=== PATIENT | female | born 1965 | race Caucasian/White ===

== ENCOUNTER 2016-05-30 14:22 | Observation (INO) | payer OTHER ==
[2016-05-30] VITALS (7 sets, daily range): BP systolic 140–215; BP diastolic 86–116; PULSE 91–119; RESP 14–31; O2SAT 96–99
[~2016-05-30] VITALS: Ht 160 cm; Wt 106.0 kg
[2016-05-30 14:52] LABS: BASOPHILS % (AUTO) 0.4 % (0-3); EOSINOPHILS % (AUTO) 1.5 % (0-5); MONOCYTES % (AUTO) 6.1 % (4-12); Mean Corpuscular Volume 79.3 fL (81-100); NEUTROPHILS % (AUTO) 69.5 % (40-74); Platelet Count 329 bil/L (150-400)
--- NOTE | 2016-05-30 15:04 | DRSVH ---
PROCEDURE: X-RAY CHEST ONE VIEW, PORTABLE ([id number]) INDICATIONS: chest pain TECHNIQUE: One view of the chest was acquired. COMPARISON: 01/24/2016 FINDINGS: Surgical changes and devices: None. Lungs and pleura: No pleural effusions or pneumothorax. Lungs are clear. Mediastinum: Mediastinal contours appear normal. Heart size is normal. Bones and chest wall: No suspicious bony lesions. Overlying soft tissues appear unremarkable. IMPRESSION: No acute cardiopulmonary abnormality Dictated by: Rolf Queen M.D. on 05/30/2016 at 15:02 Approved by: Rolf Queen M.D. on 05/30/2016 at 15:03
[2016-05-30] MEDS ORDERED: NAPR220C16 PO (15:13)
[2016-05-30] MEDS ORDERED: ALBU8.5H2 INHALATION (15:13)
[2016-05-30] MEDS ORDERED: NITR0.4T6 SL (15:13)
[2016-05-30] MEDS ORDERED: CARV6.25 PO (15:13)
[2016-05-30] MEDS ORDERED: ASPI-973 PO (15:13)
[2016-05-30] MEDS ORDERED: CARV12.5 PO ×2 (15:13)
[2016-05-30 15:15] LABS: TROPONIN T < 0.010 ug/L (0.0-0.011)
--- NOTE | 2016-05-30 15:16 | ED.REPORT ---
HPI-Chest Pain 40 and Over Date of Service May 30, 2016 ED Provider: Neymar Contreras MD Pt is a 51 year old female with a hx of arrhythmia, HTN, asthma and angina presenting to the ED via EMS complaining of intermittent chest pressure onset 3 days ago. Today, the pain has been intermittent throughout the day lasting for about 1 or 2 minutes. Associated symptoms include dizziness, lightheadedness, blurry vision, palpitations, rapid heart rate and decreased heart rate which she measured with a heart monitor. She denies similar symptoms in the past. She reports that she had a stress test 15 years ago and states that she is known to have angina. UC EKG from today reports sinus tachycardia. Pt states that she took nitro spray at home 3 times today with some relief. Pt usually takes 18mg of Coreg daily but has not taken them for the last 3 days due to her symptoms, and takes 1 ASA per day, but today took 4. Nursing Notes Stated Complaint: CHEST PAIN Chief Complaint: Chest Pain Nursing Notes Reviewed: Yes Allergies: Coded Allergies: morphine (Verified Allergy, Severe, Agitation, 05/30/16) erythromycin base (Verified Allergy, Intermediate, Nausea,Vomiting, ) Scheduled Aspirin (Aspirin) 81 Mg Tablet 81 MG PO DAILY Carvedilol (Coreg) 12.5 Mg Tablet 25 MG PO QAM Carvedilol (Coreg) 12.5 Mg Tablet 12.5 MG PO HS Carvedilol (Coreg) 6.25 Mg Tablet 6.25 MG PO HS Scheduled PRN Albuterol Sulfate (Ventolin HFA Inhaler) 200 Puff/18 Gm Inhaler 2 PUFFS INH q4- 6 hours PRN PRN For Shortness of Breath Naproxen Sodium (Naproxen Sodium) 220 Mg Capsule 220 MG PO BID PRN PRN For Pain Nitroglycerin [place] (Nitroglycerin [place]) 4.9 Gm [place] 1 SPRAY SL Q5MIN PRN PRN For Chest Pain General Time Seen by MD: 15:08 Chief Complaint Chest pressure Hx Obtained From: Patient Arrived By: Ambulance Sudden in Onset?: No Onset Occurred: 3 days ago Symptom Duration: Intermittent Quality: Painful, Pressure Radiation: : Does not radiate Severity: Current: Moderate Severity: Maximum: Moderate Recent Healthcare: No recent hospitalization, Recent doctor visit Similar Sx Previous: No Past Medical History Past Medical History Reported: arrhythmia, HTN, asthma, angina Past Surgical History denies Smoking History Current Every Day Smoker (Trying to quit) Ambulatory Status Independent Review of Systems Respiratory: Denies: Shortness of breath Cardiovascular: Reports: Chest pain, Palpitations GI: Denies: Vomiting Neurologic: Reports: Dizziness, Lightheaded Complete sys rev & neg: except as marked. Eyes: Reports: Blurred bilateral Physical Exam Initial Vital Signs Vital Signs (First) Date Time Temp Pulse Resp B/P Pulse Ox O2 Delivery O2 Flow Rate FiO2 05/30/16 14:30 36.9 119 16 215/116 99 Room Air Initial VS: Reviewed ENT: Mucous membranes moist, Conjunctiva normal, No scleral icterus Extremities: Vascular intact, Neuro intact, No swelling, No tenderness Skin: Warm, Dry, No cyanosis Neurologic: Alert, Oriented, Nonfocal Psychiatric: Mood/affect normal, Behavior normal, Normal thought content General/Constitutional: Awake, Alert, No acute distress, Well appearing Respiratory / Chest: Breath sounds = bilat, No respiratory distress Wheezing / Retractions: Positive: Wheeze insp/exp diffuse (Scattered) Cardiovascular: Regular rhythm, Heart sounds NL, No gallop, No murmurs, No rubs Heart Rate / Rhythm: Positive: Tachycardia BP: 213/113 Abdomen: Soft, Non-tender, BS normoactive Neck: Thyroid NL Interpretation & Diagnostics Lab Results Interpretation Result Diagram: 05/30/16 1440 05/30/16 1440 Test 05/30/16 14:40 White Blood Count 9.9th/mm3 (3.8-10.1) Red Blood Count 5.85mil/mm3 (3.90-5.20) Hemoglobin 14.6g/dL (12.0-15.6) Hematocrit 46.4% (35.0-46.0) Mean Corpuscular Volume 79.3fL (81-100) Mean Corpuscular Hemoglobin 25.0pg (27.0-35.0) Mean Corpuscular Hemoglobin Concent 31.5% (32.0-37.0) Red Cell Distribution Width 16.2% (12.3-15.4) Platelet Count 329bil/L (150-400) Neutrophils (%) (Auto) 69.5% (40-74) Lymphocytes (%) (Auto) 22.3% (14-46) Monocytes (%) (Auto) 6.1% (4-12) Eosinophils (%) (Auto) 1.5% (0-5) Basophils (%) (Auto) 0.4% (0-3) D-Dimer < 0.5mg/L (<0.50) Sodium Level 139mEq/L (134-144) Potassium Level 3.4mEq/L (3.5-5.2) Chloride Level 98mEq/L (97-108) Carbon Dioxide Level 24mmol/L (18-29) Blood Urea Nitrogen 5mg/dL (6-24) Creatinine 0.58mg/dL (0.57-1.00) Estimat Glomerular Filtration Rate 157mL/min (>59) Glucose Level 102mg/dL (60-99) Calcium Level 9.3mg/dL (8.5-10.1) Magnesium Level 1.5mg/dL (1.6-2.6) Total Bilirubin 0.4mg/dL (0.0-1.2) Aspartate Amino Transf (AST/SGOT) 20U/L (0-50) Alanine Aminotransferase (ALT/SGPT) 22U/L (0-32) Alkaline Phosphatase 99U/L (25-150) Total Creatine Kinase 120U/L (21-215) Creatine Kinase MB 4.0ng/mL (0.0-5.3) Creatine Kinase MB % % (0.0-5.0) Total Protein 7.7g/dL (6.4-8.4) Albumin 4.4g/dL (3.4-5.0) Thyroid Stimulating Hormone (TSH) 1.910uIU/mL (0.450-4.500) ECG Interpretation ECG Interpretation: Sinus tachycardia. Probable left atrial enlargement. Prolonged QT interval. Time: 15:08 Interpreted by: ED physician Abnormal Rate: 100 (106) X-Ray Chest Interpretation Chest Xray Interpretation: IMPRESSION: No acute cardiopulmonary abnormality Dictated by: Rolf Queen M.D. on 05/30/2016 at 15:02 View: Portable, 1 view Interpretation / Wet Read by: Interpret - Radiologist Re-Eval/Medical Decision Med Decision/Clinical Course 51-year-old female with a prolonged episode of intermittent chest pain and palpitations, tachycardia and by her report according to her home. Monitor episode of bradycardia with a heart rate down into the 50s. Her systematic theology professor as previously been attempting to get a stress test done on this lady. Troponin is negative and initial EKG shows sinus tachycardia, she was noted to be markedly hypertensive but had not been taking her beta donovan on arrival. Was given labetalol and then carvedilol with good results. We will admit her to [facility] status for a formal rule out and hopefully a stress test can be completed prior to discharge. Her palpitations and tachycardia additional time on international tax manager is also felt to be useful. Time of Eval: 16:58 Patient Status: Condition improved Re-Evaluation/Progress Note: Pt chest pain is resolved. Discussed plan for admission and stress test. Pt understands and agrees. Time of Eval: 19:01 Patient Status: Condition improved Re-Evaluation/Progress Note: Discussed admission. Pt understands and agrees. Consultation #1: Referral / Consult Name: Dedra Espinoza MD Consulted With: Cardiology Call Returned at: 16:28 Child Care Centre Manager: Agrees with plan Note: Discussed with Dr. Espinoza. Recommends a stress test. Consultation #2: Referral / Consult Name: Renae Hunter MD Consulted With: Hospitalist Call Returned at: 18:56 Child Care Centre Manager: Will see patient, Agrees with plan, Accepts admit Counseled Regarding: Diagnosis, Lab results, Need for follow-up, When/why to return to ED Discharge & Departure Primary Impression: Chest pain Chest pain type: unspecified Qualified Code: R07.9 - Chest pain, unspecified Additional Impression: Tachycardia Disposition: ADMITTED TO HOSPITAL Discharge Condition All VS Reviewed: Yes Condition: Improved Referrals: Floresita Martin DO (PCP) Dedra Espinoza MD Attestation Portions of this note were transcribed by Annmarie Lang. I, Dr. Contreras personally performed the history, physical exam and medical decision-making; I reviewed and confirmed the accuracy of the information in the transcribed note. Signed by : Gee Chin, 05/30/2016 and 1859. copies to: Floresita Martin DO; Dedra Espinoza MD, Donald L MD May 30, 2016 15:16 ANNMARIE LANG May 30, 2016 15:37
[2016-05-30 15:26] LABS: Magnesium 1.5 mg/dL (1.6-2.6)
[2016-05-30] MEDS ORDERED: Labetalol 5 mg/mL 4 mL Inj IVPUSH ONE (15:30)
[2016-05-30] MEDS ORDERED: Ondansetron 2 mg/mL 2 mL Inj IVPUSH PRN ×2 (19:00→19:10)
[2016-05-30] MEDS ORDERED: Alum-Mag Hydrox-Simeth 30 mL Suspension PO PRN (19:00)
--- NOTE | 2016-05-30 19:09 | PCM.HPMED ---
Subjective Date of Service May 30, 2016 Primary Provider: Admitting Physician: Primary Care Physician: Floresita Martin DO Attending Physician: Chief Complaint: Chest pain HISTORY was OBTAINED FROM PATIENT / MEDITECH NOTES History of present illness 51-year-old female with 3 days of intermittent chest pressure lasting minutes. Associated feeling winded and w/ lightheadedness/ blurry vision/palpitations/low and high heart rate per her home heart monitor 50 -130s, worse w/ home albuterol. Last stress exam was 15 years ago. She was sent by urgent care today she took 4 aspirins today. nitroglycerin at home helped but not enough. chest pain worst after exertion/moving on sunday.no cough /sick contact. no renal/adrenal studies previously for chronic HTN. no PCP visit in 2 years. sees preparer/Jonathanuer regularly. In the ER 215/116, pulse 119, 99% on room air, 12.5 chloride, 20 labetalol. sinus tachy on UC's EKG. intermittent chest pains are lasting 1-2 seconds. nicotine urge better after patch. Review of Systems - none of the following - F/C/sick contact / wt change/ WHEELER / lightheaded / dizziness / sob / cough / acid reflux / n/v/diarrhea / bleeding/ bruising / leg swelling / change in voiding / yeast infections / rash ambulates FAMILY HX daughter-HTN at 19 years SOCIAL HX 2-3 per week, smoker MEDICATIONS Albuterol HFA (Proair HFA) 8.5 Gm Hfa.aer.ad 2 PUFFS INHALATION Q4H Aspirin (Aspirin) 81 Mg Tablet 81 MG PO DAILY Carvedilol (Coreg) 12.5 Mg Tablet 25 MG PO DAILYWM Carvedilol (Coreg) 12.5 Mg Tablet 12.5 MG PO QPM Carvedilol (Coreg) 6.25 Mg Tablet 6.25 MG PO QPM Scheduled PRN Naproxen Sodium (Naproxen Sodium) 220 Mg Capsule 220 MG PO BID PRN PRN For Pain Miscellaneous Medications Nitroglycerin SL (Nitroglycerin SL) 0.4 Mg Tab.subl 0.4 MG SL Past Medical/Surgical HX Hypertension Dysrhythmia Asthma Chronic angina DANIEL CPAP recommended 2014 PNA 01/2016 treated w/ levaquin Allergies Coded Allergies: morphine (Verified Allergy, Severe, Agitation, 05/30/16) erythromycin base (Verified Allergy, Intermediate, Nausea,Vomiting, ) PMH Social History Hx Alcohol Use: Yes (2-3 drinks a couple times a week) Hx Substance Use: No Exam Vital Signs Vital Sign - Last Date Time Temp Pulse Resp B/P Pulse Ox O2 Delivery O2 Flow Rate FiO2 05/30/16 17:37 95 31 140/89 97 Room Air 05/30/16 14:30 36.9 Lab and Diagnostics Labs Exam on admission NAD A and O x 3 mood affect WNL NC/AT no icterus no injected eyes EOMI PERRL /no pharyngeal lesions/ no oral lesions / hearing intact Supple neck CTAB equal chest rise / no accessory muscle use / speaks in full sentences / no rrw RRR S1 S2 / no mrg / 2+ radial pulses Soft nt nd + BS no hepatosplenomegaly No edema no cyanosis no ecchymosis of lower extremities No rash / no jaundice THIBODEAUX symmetrical facies EKG sinus tachy 135, Qtc 459, no ST changes BNP 169 No left shift TSH 1.9 Troponin 0.01 x 2 D-dimer 0.5 LFT normal Imaging PROCEDURE: X-RAY CHEST ONE VIEW, PORTABLE ([id number]) INDICATIONS: chest pain TECHNIQUE: One view of the chest was acquired. COMPARISON: 01/24/2016 FINDINGS: Surgical changes and devices: None. Lungs and pleura: No pleural effusions or pneumothorax. Lungs are clear. Mediastinum: Mediastinal contours appear normal. Heart size is normal. Bones and chest wall: No suspicious bony lesions. Overlying soft tissues appear unremarkable. IMPRESSION: No acute cardiopulmonary abnormality 06/09/14 ECHO Interpretation Summary 1. Normal left ventricular size with mild LVH and normal systolic function with an estimated EF of 60-65% 2. Normal right ventricular size and systolic function 3. No evidence for valvular pathology. Result Diagram: 05/30/16 1440 05/30/16 1440 Assessment & Plan Active issues and reason for admission chest pain worse on exertion, chronic angina, chronic sinus tachycardia. --nuc med stress study chemical per cardiology (per patient) pending, echo pending, serial trop (neg x 2) pending, Dr. Espinoza aware. --pending lipid panel --nitro prn, ASA, hold morphine causes agitation --TSH normal, switch albuterol to levalbuterol Mild hypokalemic // low magnesium, likely due to albuterol --advance diet --replete mag Microcytosis --monitor Chronic issues known prior to admission, present on admission ASthma DANIEL --prn CPAP/BIPAP --trial levalbuterol prn smoker --nicotine patch Diet cardiac then npo DVT prophylaxis heparin scd ambulate Code full Disposition OBS status Assessment and plan were discussed with patient family. Renae Hunter MD May 30, 2016 19:09
[2016-05-30 19:54] LABS: Creatine Kinase 120 U/L (21-215)
[2016-05-30] MEDS ORDERED: ALBU18HF INH (20:04)
[2016-05-30] MEDS ORDERED: NITR4.9S5 SL (20:04)
[2016-05-30 20:21] LABS: INR 0.99 ratio
[2016-05-30 20:43] LABS: TROPONIN T < 0.010 ug/L (0.0-0.011)
[2016-05-30] MEDS ORDERED: Albuterol 1.25 mg/3 mL Inhalation Solution NEB PRN (21:05)
[2016-05-30] MEDS ORDERED: Magnesium Sulf 2 Gm/50mL Water 2 GM in IV Premix 1 EACH IV ONE (22:15)
[2016-05-31] MEDS ORDERED: Potassium Chloride Oral 20 mEq SR Tab(K 3 - 3.7 & Creat < 2) PO ONE (00:10)
[2016-05-31] MEDS ORDERED: 0.9% Sodium Chloride 250 ML IV ONE (00:20)
[2016-05-31] MEDS: Sodium Chloride LOK Flush 10 mL Syringe IVFLUSH SCH ×3 (00:30→16:30)
[2016-05-31 00:49] LABS: Creatine Kinase 83 U/L (21-215)
[2016-05-31] MEDS: Heparin 5,000 Unit/mL Inj SUBQ SCH ×3 (01:00→16:30)
[2016-05-31 01:12] VITALS: BP 172/103; PULSE 81; RESP 18; O2SAT 98
--- NOTE | 2016-05-31 01:29 | NUR ---
Admission Pt admitted from ED. Pt alert and oriented x3. Tele on, full admission completed. Pt complains of 2/10 chest pain which is resolving.
[2016-05-31] MEDS: hydrALAZINE 20 mg/mL Inj IV PRN ×2 (01:58→08:15)
[2016-05-31 02:50] LABS: BASOPHILS % (AUTO) 0.2 % (0-3); EOSINOPHILS % (AUTO) 2.9 % (0-5); MONOCYTES % (AUTO) 7.5 % (4-12); Mean Corpuscular Hemoglobin 25.1 pg (27.0-35.0); Mean Corpuscular Volume 79.8 fL (81-100); NEUTROPHILS % (AUTO) 64.9 % (40-74); Platelet Count 305 bil/L (150-400)
[2016-05-31 03:25] LABS: Magnesium 2.4 mg/dL (1.6-2.6)
[2016-05-31 04:50] VITALS: BP 147/90; PULSE 96; RESP 20; O2SAT 96
--- NOTE | 2016-05-31 05:28 | NUR ---
Hypertension/No chest pain (Assumed care at 0110) BP 172/103 around 0100, Dr. Hallman made aware,carvedilol hold due to scheduled stress test today 06/10/2016, Hydralazine ordered and administered, recent recheck BP 149/90. Pt denies any chest pain or pressure or SOB, but non productive cough intermittently. Pt aware stress test today, kept NPO after MN except sips of water for taking oral med at 0130, no caffeine since 9am on 05/30/2016.
[2016-05-31 06:29] LABS: APPEARANCE,URINE HAZY (CLEAR,HAZY); COLOR,URINE YELLOW (YELLOW); OCCULT BLOOD,URINE TRACE (NEGATIVE); UROBILINOGEN,URINE NORMAL (NORMAL)
[2016-05-31 07:50] VITALS: BP 160/96; PULSE 88; RESP 16; O2SAT 96
[2016-05-31 07:58] VITALS: PULSE 79; RESP 16; O2SAT 97
--- NOTE | 2016-05-31 08:24 | NUR ---
Off Floor Pt off floor for STRESS test, panel monitor called.
--- NOTE | 2016-05-31 09:15 | NUR ---
Social Work: Screening Data: Pt is a 51 y/o female admitted for chest pain resolved, tachycardia. Pt's PCP is Dr Martin, pt's insurance is [employer]. EMR reviewed. No d/c planning needs anticipated at this time. DRY STARCH SUPERVISOR will continue to follow if needs arise. Assessment: Pt who is independent at baseline. Plan: Pt will d/c home via POV when medically stable. No d/c planning needs anticipated at this time. DRY STARCH SUPERVISOR will continue to follow if needs arise. JUDY Salazar
--- NOTE | 2016-05-31 10:40 | NUR ---
On floor Pt returned from STRESS test.
[2016-05-31 10:44] VITALS: PULSE 88
--- NOTE | 2016-05-31 12:11 | DRSVH ---
PROCEDURE: 1 DAY TREADMILL STRESS TEST Rest and exercise myocardial perfusion SPECT with gated imaging and ejection fraction RADIOPHARMACEUTICAL: 15.3 mCi Tc-99m tetrafosmin IV at rest and 44.6 mCi Tc-99m tetrafosmin IV at pea k exercise. Zko-ynv-zswfrzic was performed. INDICATIONS: 51-year-old woman with chest pain. The patient has hypertension, hyperlipidemia and smo jamil as risk factors for coronary disease. Evaluate myocardial ischemia. TECHNIQUE: Radiopharmaceutical was injected at peak stress test, and also at rest. SPECT images wer e obtained. SPECT myocardial perfusion images were displayed in short axis, horizontal long axis, an d vertical long axis views. Gated images were reviewed using [employer] software. COMPARISON: None. CARDIAC STRESS: A standard Allan treadmill exercise tolerance test was performed by the patient under the supervision of an attending staff. The patient exercised for 2 minutes and 36 seconds; functional aerobic impai rment (MARCIA) is +58 %. Hemodynamic data: Hypertensive at baseline. There is normal blood pressure and heart rate response t o exercise stress. Patient achieved 85% of maximum predicted heart rate at peak exercise. Symptoms: Patient has mid sternal chest pressure during peak exercise, which increased immediately p ost exercise but subsided 3 minutes into recovery. EKG: No diagnostic EKG changes of ischemia; no ectopy. FINDINGS: Raw data: There is good myocardial labeling by radiotracer. No significant motion artifacts. Left ventricle function: Gated images demonstrate normal left ventricle wall thickening. No segment al wall motion abnormality. No transient ischemic dilation. The left ventricle resting end-diastoli c volume is normal. Left ventricle stress ejection fraction is greater than 70%; normal values are a brigida 45%. Myocardial perfusion: There is a small, mild, fixed defect in the inferior apex, which is resolved o n prone imaging, consistent with diaphragmatic attenuation artifact. There is otherwise normal distri bution of activity in the left and right ventricular myocardium. No reversible perfusion defect to s uggest myocardial ischemia. IMPRESSION: 1. Normal myocardial perfusion images. 2. Normal left ventricular volume and systolic function. 3. Severely limited exercise capacity. Patient experienced mid sternal chest pressure during peak exe rcise. No diagnostic EKG changes for ischemia. PQRS ATTESTATIONS: Measure 322 - Is this imaging test primarily performed on a low-risk surgery patient for preoperative evaluation within 30 days preceding their low-risk non-cardiac surgery? Low-risk surgery is defined as cardiac or myocardial infarction less than 1%, including (but not limited to) endoscopic pr ocedures, superficial procedures, cataract surgery, and excisional breast surgery: Answer: No Measure 323 - Is this imaging test performed primarily for the monitoring of an asymptomatic patient who had percutaneous coronary intervention on the visit date or within 2 years of the visit date? An swer: No Measure 324 - Is this imaging test performed primarily for the initial detection and risk assessment on an asymptomatic, low coronary heart disease patient? Low CHD risk definition = clinicians should consider the maximum number of available patient factors used to estimate risk based on [place] (A TP III criteria), typically age, gender, diabetes, smoking status, and use of blood pressure medicati on, and integrate age appropriate estimates for missing elements, such as LDL or standard blood press ure. Answer: No Dictated by: Rickie Lazar M.D. on 05/31/2016 at 11:52 Approved by: Rickie Lazar M.D. on 05/31/2016 at 12:09
[2016-05-31 12:56] VITALS: BP 146/95; PULSE 99; RESP 14; O2SAT 97
--- NOTE | 2016-05-31 16:26 | NUR ---
Pt resting Pt has been pleasant today and joking with staff. Pt sat in the chair for lunch after coming back from the stress test, and into the afternoon. Pt's daughter and family came to visit in the early afternoon, and is now resting in bed. Bed in low position and call light within reach
[2016-05-31] MEDS ORDERED: LISI-571 PO (18:33)
--- NOTE | 2016-05-31 18:37 | PCM.DIMED ---
Discharge Instructions Date of Service May 31, 2016 Dates of Hospitalization May 30, 2016 at 19:46 Discharge Diagnosis Discharge Diagnosis # Acute chest pain, present on admission. resolved - ruled out for acute myocardial infarction (SD) # Hypertension, chronic. poorly controlled. # Acute mild hypokalemic, present on admission. Resolved. # ASthma, chronic. stabl # Obstructive sleep apnea. Diet Low fat, Low Sodium, Heart Healthy Activity No restrictions Call your provider Fever or Chills, Shortness of breath, Chest pain Patient Instructions Seek immediate medical attention if any new or worsening signs or symptoms occur. Follow-up plan 1. Followup with primary care provider in 2-7 days 2. Followup with code official (Dr. Espinoza) as previously scheduled or sooner if needed. Follow-up Provider: Floresita aMrtin DO Provider: Dedra Espinoza MD, Masoud May 31, 2016 18:37
--- NOTE | 2016-05-31 18:43 | DRSVH ---
[facility] [address] [place] [address] Echocardiogram Report Name: MEHDI MAXWELL Date: 05/31/2016 Height: 63 in Hospital Exam Location: [facility] Weight: 241 lb Gender: Female BSA: 2.1 m2 : 1965 Age: 51 yrs BP: 147/90 mmHg Reason For Study: CHEST PAIN Ordering Physician: HOSPITALIST RAPHAELerformed By: Hitesh Bazzi Referring Physician: [place] LEON Interpretation Summary 1. Normal left ventricular size with upper limits of normal wall thickness and normal systolic function and an estimated EF of 60-65%. 2. Normal right ventricular size and systolic function. 3. No evidence for valvular pathology Compared to the previous study, no significant change Procedure: A two-dimensional transthoracic echocardiogram with color flow and Doppler was performed. The study quality was technically difficult. Comparison is made with the echocardiogram of 06/09/14. A contrast injection of Definity was performed to improve assessment of LV function. The patient was in normal sinus rhythm during the exam. Left Ventricle: The left ventricle is normal in size. Left ventricular wall thickness is at the upper limits of normal. Mildly elevated outflow tract velocities. The ejection fraction is estimated to be 60-65%. There are no focal wall motion abnormalities. Right Ventricle: The right ventricle is normal in size and function. Atria: Both atria are normal in size. No color doppler evidence for an ASD. Mitral Valve: The mitral valve is normal in structure and function. There is trace mitral regurgitation. Aortic Valve: The aortic valve is trileaflet. The aortic valve opens well. No aortic regurgitation is present. Tricuspid Valve: The tricuspid valve is normal in structure and function. There is a trace or physiologic amount of tricuspid regurgitation. Pulmonary artery pressures cannot be estimated because of the lack of a measurable TR jet velocity. Pulmonic Valve: The pulmonic valve is not well visualized. There is trace pulmonic regurgitation. Great Vessels: The aortic root is normal size. The dimensions of the ascending aorta are normal. The pulmonary artery is normal size. The IVC is of normal diameter and collapses greater than 50% with a sniff. This suggests a low right atrial pressure of 3 mm Hg. Pericardium/ Pleura There is no pericardial effusion. There is no pleural effusion. MMode/2D Measurements & Calculations LVIDd: 5.6 cm LA dimension: 4.3 cm RA long axis LVOT diam LVIDs: 3.1 cm FS: 44.9 % LA A2 area: 22.9 cm RA area Ao root diam EPSS: 0.47 cm LA A4 area: 21.6 cm IVSd: 1.1 cm LA length (vol): 6.0 cm : 18.8 cm Aortic Jxn LVPWd: 1.1 cm LA vol: 70.7 ml RA vol: 58.8 ml LA vol index RA asc Aorta : 28.1 mm2 Diam: 3.1 cm IVC diam: 1.9 cm LV niño. diameter/BSA LV sys. diameter/BSA (cm/m^2): 2.7 (cm/m^2): 1.5 Doppler Measurements & Calculations Ao V2 max MV E max daniel MV E/A: 1.3 PA V2 max : 145.0 cm/sec : 127.2 cm/sec Med Peak E' Daniel : 71.1 cm/sec Ao max P.4 mmHg MV A max daniel PA mean PG Ao mean P.7 mmHg : 100.0 cm/sec E/E' med: 20.5 LVOT Max Daniel Pulm A Revs Dur PA Accel Time : 112.7 cm/sec MVA(VTI): 3.3 cm2 : 0.07 sec MV A dur BEVERLY(I,D): 2.3 cm : 0.09 sec sev ratio: 0.68 MV V2 mean Ao V2 mean LV V1 max PG PA V2 mean : 82.3 cm/sec : 116.8 cm/sec : 53.9 cm/sec MV mean P.1 mmHg Ao V2 VTI: 29.8 cm LV V1 VTI PA pr(Accel) MV V2 VTI: 20.4 cm BEVERLY(V,D): 2.6 cm2 : 20.3 cm : 51.6 mmHg MV dec time: 0.17 sec BEVERLY indexed to BSA Pulm A Revs Dur - MV A (cm^2/m^2): 1.1 Dur: -0.01 msec Reading Physician:06:42 PM
--- NOTE | 2016-05-31 18:44 | PCM.DC.MED ---
Discharge Summary Date of Service May 31, 2016 Dates of Hospitalization Date of Hospital Admission May 30, 2016 at 19:46 Date of Discharge: May 31, 2016 Providers: Admitting Physician: Renae Hunter MD Primary Care Physician: Floresita Martin DO Attending Physician: Renae Hunter MD Diagnosis at Time of Discharge Diagnosis at Time of Discharge # Acute chest pain, present on admission. resolved - ruled out for acute myocardial infarction (MT) # Hypertension, chronic. poorly controlled. # Acute mild hypokalemic, present on admission. Resolved. # ASthma, chronic. stabl # Obstructive sleep apnea. Procedures XRay, CTs & MRIs Date of Service: 05/30/16 1435 PROCEDURE: X-RAY CHEST ONE VIEW, PORTABLE ([id number]) IMPRESSION: No acute cardiopulmonary abnormality Dictated by: Rolf Queen M.D. on 05/30/2016 at 15:02 Approved by: Rolf Queen M.D. on 05/30/2016 at 15:03 Cardiac Echo Impression Echo Reviewed with Dr. Espinoza at time of discharge and reported unremarkable. Other Diagnostics Date of Service: 05/31/16 2150 PROCEDURE: 1 DAY TREADMILL STRESS TEST Rest and exercise myocardial perfusion SPECT with gated imaging and ejection fraction IMPRESSION: 1. Normal myocardial perfusion images. 2. Normal left ventricular volume and systolic function. 3. Severely limited exercise capacity. Patient experienced mid sternal chest pressure during peak exercise. No diagnostic EKG changes for ischemia. PQRS ATTESTATIONS: Measure 322 - Is this imaging test primarily performed on a low-risk surgery patient for preoperative evaluation within 30 days preceding their low-risk non- cardiac surgery? Low-risk surgery is defined as cardiac or myocardial infarction less than 1%, including (but not limited to) endoscopic procedures, superficial procedures, cataract surgery, and excisional breast surgery: Answer : No Measure 323 - Is this imaging test performed primarily for the monitoring of an asymptomatic patient who had percutaneous coronary intervention on the visit date or within 2 years of the visit date? Answer: No Measure 324 - Is this imaging test performed primarily for the initial detection and risk assessment on an asymptomatic, low coronary heart disease patient? Low CHD risk definition = clinicians should consider the maximum number of available patient factors used to estimate risk based on [place]ctor ( ATP III criteria), typically age, gender, diabetes, smoking status, and use of blood pressure medication, and integrate age appropriate estimates for missing elements, such as LDL or standard blood pressure. Answer: No Dictated by: Rickie Lazar M.D. on 05/31/2016 at 11:52 Approved by: Rickie Lazar M.D. on 05/31/2016 at 12:09 Brief History As noted in H&P by Dr. Hunter: 51-year-old female with 3 days of intermittent chest pressure lasting minutes. Associated feeling winded and w/ lightheadedness/blurry vision/palpitations/low and high heart rate per her home heart monitor 50-130s, worse w/ home albuterol. Last stress exam was 15 years ago. She was sent by urgent care today she took 4 aspirins today. nitroglycerin at home helped but not enough. chest pain worst after exertion/moving on sunday.no cough/sick contact. no renal /adrenal studies previously for chronic HTN. no PCP visit in 2 years. sees [facility] regularly. Hospital Course pt ruled out for ACS by negative enzymes during this hospital. Her stress test was reported as "Normal myocardial perfusion images" (as noted above). Her Echo was reviewed with her [facility] (Dr. Espinoza) and noted to be unremarkable as well. Patient reports to be asymptomatic and wants to go home now. On admission her BP was significantly elevated (215/116) and improved down to 146/95 by time of discharge. I will discharge her on continued Coreg but will also add low dose Lisinopril (5mg daily) which she says she was taking in the past with recommendation for close f/u w/ PCP and cardiology in the coming days to reassess her BP and adjust medications as needed. By day of d/c lungs CTA bilat and CV: RRR. Exam Vital Signs (Last) Date Time Temp Pulse Resp B/P Pulse Ox O2 Delivery O2 Flow Rate FiO2 05/31/16 12:56 36.4 99 14 146/95 97 Room Air Test 05/30/16 14:40 05/30/16 19:53 05/31/16 00:01 05/31/16 02:38 D-Dimer < 0.5mg/L (<0.50) Hemoglobin A1c 6.1% (4.8-5.6) Total Bilirubin 0.4mg/dL (0.0-1.2) Aspartate Amino Transf (AST/SGOT) 20U/L (0-50) Alanine Aminotransferase (ALT/SGPT) 22U/L (0-32) Alkaline Phosphatase 99U/L (25-150) Total Protein 7.7g/dL (6.4-8.4) Albumin 4.4g/dL (3.4-5.0) Thyroid Stimulating Hormone (TSH) 1.910uIU/mL (0.450-4.500) Prothrombin Time 10.6sec (8.1-12.5) Prothromb Time International Ratio 0.99ratio Pro-B-Type Natriuretic Peptide 159.4pg/mL (0-249) Total Creatine Kinase 83U/L (21-215) Creatine Kinase MB 2.8ng/mL (0.0-5.3) Creatine Kinase MB % % (0.0-5.0) White Blood Count 8.7th/mm3 (3.8-10.1) Red Blood Count 5.14mil/mm3 (3.90-5.20) Hemoglobin 12.9g/dL (12.0-15.6) Hematocrit 41.0% (35.0-46.0) Mean Corpuscular Volume 79.8fL (81-100) Mean Corpuscular Hemoglobin 25.1pg (27.0-35.0) Mean Corpuscular Hemoglobin Concent 31.5% (32.0-37.0) Red Cell Distribution Width 16.1% (12.3-15.4) Platelet Count 305bil/L (150-400) Neutrophils (%) (Auto) 64.9% (40-74) Lymphocytes (%) (Auto) 24.3% (14-46) Monocytes (%) (Auto) 7.5% (4-12) Eosinophils (%) (Auto) 2.9% (0-5) Basophils (%) (Auto) 0.2% (0-3) Sodium Level 140mEq/L (134-144) Potassium Level 4.3mEq/L (3.5-5.2) Chloride Level 101mEq/L (97-108) Carbon Dioxide Level 24mmol/L (18-29) Blood Urea Nitrogen 7mg/dL (6-24) Creatinine 0.54mg/dL (0.57-1.00) Estimat Glomerular Filtration Rate 170mL/min (>59) Glucose Level 110mg/dL (60-99) Calcium Level 9.1mg/dL (8.5-10.1) Magnesium Level 2.4mg/dL (1.6-2.6) Troponin T 0.010ug/L (0.0-0.011) Triglycerides Level 120mg/dL (0-149) Cholesterol Level 163mg/dL (100-199) LDL Cholesterol, Calculated 79.000mg/dL (0-99) VLDL Cholesterol 24.000mg/dL HDL Cholesterol 60mg/dL (>39) Cholesterol/HDL Ratio 2.72 (0.0-4.4) Test 05/31/16 06:00 Urine Color Yellow (YELLOW) Urine Appearance Hazy (CLEAR,HAZY) Urine pH 7.0 (5.0-8.0) Urine Specific [place] 1.010 (1.003-1.035) Urine Protein Tracemg/dL (NEG,TRACE) Urine Glucose (UA) Negativemg/dL (NEGATIVE) Urine Ketones Negativemg/dL (NEGATIVE) Urine Occult Blood Trace (NEGATIVE) Urine Nitrite Negative (NEGATIVE) Urine Bilirubin Negative (NEGATIVE) Urine Urobilinogen Normalmg/dL (NORMAL) Urine Leukocyte Esterase Small (NEGATIVE) Urine RBC 0-2/hpf (0-2) Urine WBC 11-50/hpf (0-5) Urine Epithelial Cells Moderate/hpf (NONE-MOD) Urine Crystals None seen (NONE SEEN) Urine Bacteria None/hpf (NONE-FEW) Urine Hyaline Casts None/lpf (NONE) Urine Granular Casts None seen (NONE SEEN) Urine Waxy Casts None seen (NONE SEEN) Urine Red Blood Cell Casts None seen (NONE SEEN) Urine White Blood Cell Casts None seen (NONE SEEN) Urine Mucus None seen (None Seen) Urine Trichomonas None seen (NONE SEEN) Urine Yeast None (NONE SEEN) Urine Culture Reflexed Indicated Discharge Medications Discharge Medications Aspirin (Aspirin) 81 Mg Tablet 81 MG PO DAILY (Reported) Carvedilol (Coreg) 12.5 Mg Tablet 25 MG PO QAM (Reported) Carvedilol (Coreg) 12.5 Mg Tablet 12.5 MG PO HS (Reported) Carvedilol (Coreg) 6.25 Mg Tablet 6.25 MG PO HS (Reported) Lisinopril (Lisinopril) 5 Mg Tablet 5 MG PO DAILY Prescribed by: MARIANO HARMON MD As needed Albuterol Sulfate (Ventolin HFA Inhaler) 200 Puff/18 Gm Inhaler 2 PUFFS INH q4- 6 hours PRN PRN For Shortness of Breath (Reported) Nitroglycerin [place] (Nitroglycerin [place]) 4.9 Gm [place] 1 SPRAY SL Q5MIN PRN PRN For Chest Pain (Reported) Followup Plan Disposition: Home Follow-up plan 1. Followup with primary care provider in 2-7 days 2. Followup with [facility] (Dr. Espinoza) as previously scheduled or sooner if needed. Discharge Diet: Low fat, Low Sodium, Heart Healthy Discharge Activity: No restrictions Patient Instructions Seek immediate medical attention if any new or worsening signs or symptoms occur. Follow-up Provider: Floresita Martin DO Provider: Dedra Espinoza MD Time spent 35 min copies to: Floresita Martin DO; Dedra Espinoza MD, [place] May 31, 2016 18:44
== END 2016-05-31 18:58 | disposition home or self-care (01) ==
LOC: EDBD 14:22 → SED 14:22 → EDUNIT# 14:22 → MPC 19:46
PROVIDERS: ADMIT Urology; ATTEND Urology
DX: R07.9 Chest pain, unspecified (principal); I10 Essential (primary) hypertension; E87.6 Hypokalemia; J45.909 Unspecified asthma, uncomplicated; G47.33 Obstructive sleep apnea (adult) (pediatric); R00.0 Tachycardia, unspecified; I20.8 Other forms of angina pectoris; E83.42 Hypomagnesemia; F17.210 Nicotine dependence, cigarettes, uncomplicated; Z79.82 Long term (current) use of aspirin
CPT/HCPCS: 36415; 71010; 78452; 80048; 80053; 80061; 81000; 82550; 82553; 83036; 83735; 83880; 84443; 84484; 85025; 85379; 85610; 87086; 87088; 93005; 93017; 94664; 96374; 96375; 96376; 99285; A4300; A9502; C8929; G0378; G0463; J0360; J1644; J7050; J7613; Q9957